=== PATIENT | female | born 1950 | race Caucasian/White ===

== ENCOUNTER → 2016-10-09 | Outpatient (CLI) | payer OTHER ==
[~2016-10-09] MED LIST: ASPIRIN81 M1 PO; ATENOLOL; FISH OIL 1,0001 CA2 PO; HUMULIN 70/30 V10 ML; LEVEMIR100 U/ML SUBQ; LIPITOR; NAPROXEN250 MG PO; NOVOLOG100 U/M2 SQ; NOVOLOG100 U/M2 SUBQ; NOVOLOG100 U/M3 SUBQ
--- NOTE | ~2016-10-09 | MY29 ---
[facility] A Service of [facility] / [facility] RADIOLOGY TEXT RESULTS PATIENT: ANDRES LIU LOCATION: [facility] #: [id number] : [birth year] UNIT #: [id number] AGE: [address]: RAQUEL ALBA APRN SEX: F ORDER DR: [id number] [facility] [address] [place], [place] [address] [id number] O MR#: [id number] Acc #: [id number] NAME: ANDRES LIU : 1950 SEX: F STUDY DATE/TIME: 10/09/2016 11:49 UNIT: [facility] ROOM: STUDY DESCRIPTION: MY NABEEL SCREENING W/ CAD BILAT Attending Physician: Raquel Alba Referring Physician: Raquel Alba Ordering Physician: Physician Non-Staff Primary Care Physician: Raquel Alba MEDICAL IMAGING REPORT This report is preliminary unless electronic signature is present EXAM Digital screening mammogram 10/09/2016. HISTORY A 66-year-old woman no risk elevation. Annual screening. COMPARISON STUDIES Mammograms date to 06/25/2015 from [facility] Digital imaging of each breast was completed utilizing a two-view examination of each breast in craniocaudal and mediolateral-oblique projections. Review and interpretation of digital mammograms include a second review in conjunction with FDA-approved CAD device. There is a normal parenchymal presentation bilaterally consistent with the patient's age. There are no breast masses imaged and no parenchymal asymmetry is visualized. There are no suspicious microcalcifications and I see no focal architectural disturbance. IMPRESSION Negative screening digital mammogram. One-year followup recommended. Patients over the age of 40 are entered into a reminder system with target due date for the next mammogram. A result letter will also be sent to the patient. ADDENDUM Breast parenchyma is fatty replaced Patients over the age of 40 are entered into a reminder system with target due date for the next mammogram. A result letter will also be sent to the patient. [facility] A Service [facility] RADIOLOGY TEXT RESULTS PATIENT: ANDRES LIU [facility] [id number] : [birth year] UNIT #: [id number] AGE: [address]: RAQUEL ALBA APRN SEX: F ORDER DR: ALINEADS: 1 Negative Dictated by... Mg Almaguer M.D. THIS IS AN ELECTRONICALLY VERIFIED REPORT Mg Almaguer M.D. at 10/11/2016 7:10 AM IMELDA/steven TD: 10/10/2016 19:34 JOB #: [id number] MEDICAL IMAGING REPORT Page 1 of 1 COPY
== END | disposition home or self-care (01) ==
LOC: CWCC 11:15
DX: Z12.31 Encounter for screening mammogram for malignant neoplasm of breast (principal); R92.8 Other abnormal and inconclusive findings on diagnostic imaging of breast
CPT/HCPCS: G0202